=== PATIENT | female | born 1985 | race Caucasian/White ===

== ENCOUNTER 2019-02-22 00:21 | Emergency (ER) | payer BC ==
--- NOTE | 2019-02-22 00:40 | ER Document Report ---
ED General - General Chief Complaint: Vomiting Stated Complaint: VOMITING/8 WEEKS Time Seen by Provider: 02/22/19 00:40 Primary Care Provider: ROCÍO SYED MD [ACTIVE STAFF] - Follow up as needed - HPI Patient complains to provider of: vomiting Notes: 33 y/o presenting for nausea/vomiting and now weakness she is approx 8 weeks and has had US w/ obgyn that showed IUP no abdominal pain or vaginal bleeding no back pain no blood in emesis notes she has had difficulty w/ nausea/vomiting basically over last 2-3 weeks and finally came in due to weakness and feels like she needs IVF's she has tried diclegis w/ some improvement - Related Data Allergies/Adverse Reactions: amoxicillin [From Augmentin] Allergy (Verified 02/22/19 01:27) cefuroxime [From Ceftin] Allergy (Verified 02/22/19 01:27) clavulanic acid [From Augmentin] Allergy (Verified 02/22/19 01:27) Past Medical History - Social History Smoking Status: Unknown if Ever Smoked Family History: Reviewed & Not Pertinent Review of Systems - Review of Systems Constitutional: Weakness EENT: No symptoms reported Cardiovascular: No symptoms reported Respiratory: No symptoms reported Gastrointestinal: Nausea, Vomiting Genitourinary: No symptoms reported Female Genitourinary: Musculoskeletal: No symptoms reported Skin: No symptoms reported Hematologic/Lymphatic: No symptoms reported Neurological/Psychological: No symptoms reported Physical Exam - Vital signs Vitals: Temp Pulse Resp BP Pulse Ox 97.6 F 86 18 122/75 100 02/22/19 00:26 02/22/19 00:26 02/22/19 00:26 02/22/19 00:26 02/22/19 00:26 Interpretation: Normal - General General appearance: Appears well, Alert - HEENT Head: Normocephalic, Atraumatic Eyes: Normal Pupils: PERRL Mucous membranes: Dry Pharynx: Normal Neck: Normal. No: Meningismus - Respiratory Respiratory status: No respiratory distress Chest status: Nontender Breath sounds: Normal Chest palpation: Normal - Cardiovascular Rhythm: Regular Heart sounds: Normal auscultation Murmur: No - Abdominal Inspection: Normal Distension: No distension Bowel sounds: Normal Tenderness: Nontender Organomegaly: No organomegaly - Back Back: Normal, Nontender - Extremities General upper extremity: Normal inspection, Nontender, Normal color, Normal ROM, Normal temperature General lower extremity: Normal inspection, Nontender, Normal color, Normal ROM, Normal temperature, Normal weight bearing. No: Yanick's sign - Neurological Neuro grossly intact: Yes Cognition: Normal Orientation: AAOx4 [place] Coma Scale Eye Opening: Spontaneous [place] Coma Scale Verbal: Oriented [place] Coma Scale Motor: Obeys Commands [place] Coma Scale Total: 15 Speech: Normal Motor strength normal: LUE, RUE, LLE, RLE Sensory: Normal - Psychological Associated symptoms: Normal affect, Normal mood - Skin Skin Temperature: Warm Skin Moisture: Dry Skin Color: Normal Course - Re-evaluation Re-evalutation: 02/22/19 01:03 vomiting in appears dehydrated 2L LR ordered upon initial eval no bleeding or abd pain to suggest that US is needed given IUP established by OBGYN 02/22/19 03:36 improved w/ reglan and hydration encourage OBGYN follow up as outpt return precautions given - Vital Signs Vital signs: Temp Pulse Resp BP Pulse Ox 97.6 F 86 18 122/75 100 02/22/19 00:26 02/22/19 00:26 02/22/19 00:26 02/22/19 00:26 02/22/19 00:26 - Laboratory Result Diagrams: 02/22/19 01:30 02/22/19 01:30 Laboratory results interpreted by me: 02/22/19 02/22/19 02/22/19 01:30 01:30 02:30 WBC 12.3 H Lymph % (Auto) 7.7 L Absolute Neuts (auto) 10.3 H Seg Neutrophils % 83.9 H Sodium 136.0 L Urine Ketones 20 H Urine Urobilinogen 2.0 H Ur Leukocyte Esterase MODERATE H Discharge - Discharge Clinical Impression: Nausea and vomiting during Condition: Stable Disposition: HOME, SELF-CARE Instructions: Vomiting ([facility]) Additional Instructions: follow up with obgyn as an outpatient to discuss nausea medications return to ED with worsening Referrals: ROCÍO SYED MD [ACTIVE STAFF] - Follow up as needed
[2019-02-22] MEDS ORDERED: RINGERS SOLUTION,LACTATED 2,000 ML IV ONE (00:59)
[2019-02-22] MEDS ORDERED: DIPHENHYDRAMINE HCL 50 MG/ML VIAL IV ONE (01:26)
[2019-02-22] MEDS ORDERED: METOCLOPRAMIDE HCL INJ/PF 10 MG/2 ML SDV IV ONE (01:26)
[2019-02-22 01:44] LABS: ABSOLUTE BASOPHILS # (AUTO) 0.1 10^3/uL (0.0-0.2); ABSOLUTE EOSINOPHILS # (AUTO) 0.1 10^3/uL (0.0-0.6); ABSOLUTE LYMPHOCYTES (AUTO) 0.9 10^3/uL (0.5-4.7); ABSOLUTE MONOCYTES (AUTO) 0.8 10^3/uL (0.1-1.4); ABSOLUTE NEUT (AUTO) 10.3 10^3/uL (1.7-8.2); BASOPHILS % (AUTO) 0.5 % (0-2); HEMATOCRIT 40.8 % (36.0-47.0); HEMOGLOBIN 13.8 g/dL (12.0-15.5); LYMPHOCYTES % (AUTO) 7.7 % (13-45); MEAN CORPUSCULAR HEMOGLOBIN 30.2 pg (27.0-33.4); MEAN CORPUSCULAR HGB CONC 33.8 g/dL (32.0-36.0); MEAN CORPUSCULAR VOLUME 89 fl (80-97); MONOCYTES % (AUTO) 6.9 % (3-13); PLATELET COUNT 214 10^3/uL (150-450); RED BLOOD COUNT 4.57 10^6/uL (3.72-5.28); RED CELL DISTRIBUTION WIDTH 13.2 % (11.5-14.0); SEGMENTED NEUTROPHILS % (AUTO) 83.9 % (42-78); TOTAL CELLS COUNTED % (AUTO) 100 %; WHITE BLOOD COUNT 12.3 10^3/uL (4.0-10.5)
[2019-02-22 01:54] LABS: ALBUMIN 4.1 g/dL (3.5-5.0); ALKALINE PHOSPHATASE 67 U/L (38-126); ANION GAP 9 (5-19); ASPARTATE AMINO TRANSFERASE 29 U/L (14-36); BILIRUBIN,TOTAL 0.6 mg/dL (0.2-1.3); BLOOD UREA NITROGEN 11 mg/dL (7-20); CALCIUM 9.1 mg/dL (8.4-10.2); CARBON DIOXIDE 24 mmol/L (22-30); CHLORIDE 103 mmol/L (98-107); GLUCOSE 92 mg/dL (75-110); TOTAL PROTEIN 6.9 g/dL (6.3-8.2)
[2019-02-22 03:19] LABS: APPEARANCE,URINE SLIGHTLY-CLOUDY; BILIRUBIN,URINE NEGATIVE (NEGATIVE); COLOR,URINE YELLOW; GLUCOSE, URINE NEGATIVE (NEGATIVE); KETONES,URINE 20 mg/dL (NEGATIVE); LEUKOCYTE ESTERASE,URINE MODERATE (NEGATIVE); NITRITE,URINE NEGATIVE (NEGATIVE); PROTEIN,URINE NEGATIVE (NEGATIVE); URINE SPECIFIC GRAVITY 1.023
[2019-02-22 03:52] VITALS: BP 106/79
== END 2019-02-22 03:40 | disposition home or self-care (01) ==
LOC: ER 00:21
DX: O21.9 Vomiting of pregnancy, unspecified (principal); O26.891 Other specified pregnancy related conditions, first trimester; R53.1 Weakness; Z3A.08 8 weeks gestation of pregnancy
CPT/HCPCS: 36415; 82962; 83690; 85025; 80053; 81001; J1200; J2765; J7120; 96361; 96374; 96375; 99283